=== PATIENT | female | born 1960 | race Caucasian/White ===

== ENCOUNTER → 2023-11-01 06:52 | Outpatient (REF) | payer OTHER, SELFPAY | LOC: MRI 3T 06:52 | PROVIDERS: ATTENDING PHYSICIAN Anesthesiology; FAMILY PHYSICIAN Physician Assistant Medical | DX: M54.14 Radiculopathy, thoracic region (principal) | CPT/HCPCS: 72146 ==

== ENCOUNTER → 2024-04-28 07:38 | Outpatient (REF) | payer OTHER, SELFPAY | LOC: RAD 07:38 | PROVIDERS: ATTENDING PHYSICIAN Physician Assistant; FAMILY PHYSICIAN Physician Assistant Medical | DX: M25.561 Pain in right knee (principal) | CPT/HCPCS: 73564 ==

== ENCOUNTER → 2024-09-10 07:14 | Outpatient (REF) | payer OTHER, SELFPAY | LOC: PAVMRI 07:14 | PROVIDERS: ATTENDING PHYSICIAN Specialist; FAMILY PHYSICIAN Physician Assistant Medical | DX: K76.89 Other specified diseases of liver (principal) | CPT/HCPCS: 74183; A9575 ==

== ENCOUNTER → 2024-12-29 13:00 | Outpatient (REF) | payer OTHER, SELFPAY | LOC: RAD 13:00 | PROVIDERS: ATTENDING PHYSICIAN Physician Assistant Medical | DX: M25.511 Pain in right shoulder (principal) | CPT/HCPCS: 73030 ==

== ENCOUNTER → 2025-01-10 06:44 | Outpatient (REF) | payer OTHER, SELFPAY | LOC: MRI 3T 06:44 | PROVIDERS: ATTENDING PHYSICIAN Physician Assistant Medical | DX: M25.511 Pain in right shoulder (principal) | CPT/HCPCS: 73221 ==

== ENCOUNTER 2025-01-12 14:02 | Observation (INO) | payer OTHER, SELFPAY ==
[2025-01-12] VITALS (13 sets, daily range): BP systolic 87–130; BP diastolic 44–86; BMI 21.8
--- NOTE | 2025-01-12 09:12 | ED.GENMED ---
History of Present Illness
<Sachin Nunes Jr., PA-C - Last Filed: 01/12/25 12:32>
General
Chief Complaint: Eye Problems
Source: patient and family
Exam Limitations: none
Time Seen by Provider: 01/12/25 07:23
Nursing documentation reviewed up to this point in time: agreed with
History of Present Illness
History of Present Illness:
65-year-old female with past medical history of anemia previous GI bleeds presenting to the emergency department today with concerns of complete vision loss of the right eye few hours prior to arrival upon awakening when using her phone. Lasted for
a few minutes went to the bathroom and noticed that the vision was coming back in a curtain like fashion from top to bottom. Denies any headache or discomfort. Denies any numbness weakness or any additional symptoms otherwise.
Past History
<Sachin Nunes Jr., PA-C - Last Filed: 01/12/25 12:32>
Past History
ED Past Medical History: Other and Other (Sorensen's esophagus, hiatal hernia, deficiency anemia, gastric ulcer, and ectopic )
ED Past Surgical History: Appendectomy and Gynecological
Social History
Tobacco: Non-smoker
Personal:
Living: with family
Family History
Family History: Negative Diabetes
Review of Systems
<Sachin Nunes Jr., PA-C - Last Filed: 01/12/25 12:32>
Review of Systems
Allergies reviewed?: Yes
All Other Systems: ROS reviewed and negative except as documented in HPI and ROS
Phy Exam
<Sachin Nunes Jr., PA-C - Last Filed: 01/12/25 12:32>
Physical Exam
Physical Exam:
GENERAL: Alert , in no apparent distress
EYE: pupils equal and reactive
NECK: Supple, no significant adenopathy.
ENT: o/p clr, mmm.
CARDIAC: Regular rate and rhythm .
LUNGS: Clear breath sounds bilaterally, no acute respiratory distress, no wheezes/rales/rhonchi
ABDOMEN: Soft, without focal tenderness, no r/g, no cvat
NEUROLOGICAL: Alert and oriented, no focal neuro deficits 5 out of 5 upper and lower extremity strength normal sensation with palpating bilaterally normal finger-nose [id number] no pronator drift.
SKIN: Warm and dry, skin intact.
MUSCULOSKELETAL: No edema, well perfused.
PSYCH: Normal and appropriate interaction.
Course
<Sachin Nunes Jr., SAJI-Cecilio - Last Filed: 01/12/25 12:32>
Orders/Labs/Results
Orders:
Orders
01/12/25 08:31
EKG [Electrocardiogram (*1)] Urgent
Reason for Study: TIA/Stroke
CT Head & Neck Angio W/wo IV Urgent
Comment:
Reason For Exam: right vision loss
01/12/25 08:32
EKG- Treatment ONCE
01/12/25 09:04
CRP [C-Reactive Protein] Urgent
Complete Blood Count/With Diff Urgent
Comprehensive Metabolic Panel Urgent
Erythrocyte Sed Rate Urgent
Abnormal Lab Results
01/12/25
09:04
MPV 11.8 H fL
(7.4-10.4)
BUN 20 H mg/dl
(7-17)
01/12/25 09:04
01/12/25 09:04
Vital Signs
Initial and Last Documented VS:
Initial Vital Signs
Temp Pulse Resp BP Pulse Ox
36.7 C 65 15 122/71 95
01/12/25 06:12 01/12/25 06:12 01/12/25 06:12 01/12/25 06:12 01/12/25 06:12
Last Documented Vital Signs
Temp Pulse Resp BP Pulse Ox
36.7 C 62 15 105/75 93
01/12/25 06:12 01/12/25 10:30 01/12/25 06:12 01/12/25 10:00 01/12/25 11:45
<Tristan Cedeño MD - Last Filed: 01/12/25 12:45>
Orders/Labs/Results
Orders:
Orders
01/12/25 08:31
EKG [Electrocardiogram (*1)] Urgent
Reason for Study: TIA/Stroke
CT Head & Neck Angio W/wo IV Urgent
Comment:
Reason For Exam: right vision loss
01/12/25 08:32
EKG- Treatment ONCE
01/12/25 09:04
CRP [C-Reactive Protein] Urgent
Complete Blood Count/With Diff Urgent
Comprehensive Metabolic Panel Urgent
Erythrocyte Sed Rate Urgent
Abnormal Lab Results
01/12/25
09:04
MPV 11.8 H fL
(7.4-10.4)
BUN 20 H mg/dl
(7-17)
01/12/25 09:04
01/12/25 09:04
Vital Signs
Initial and Last Documented VS:
Initial Vital Signs
Temp Pulse Resp BP Pulse Ox
36.7 C 65 15 122/71 95
01/12/25 06:12 01/12/25 06:12 01/12/25 06:12 01/12/25 06:12 01/12/25 06:12
Last Documented Vital Signs
Temp Pulse Resp BP Pulse Ox
36.7 C 62 15 105/75 93
01/12/25 06:12 01/12/25 10:30 01/12/25 06:12 01/12/25 10:00 01/12/25 11:45
<Sachin Nunes Jr., PA-C - Last Filed: 01/12/25 12:32>
MDM/Problems Addressed
MDM/Problems Addressed:
65-year-old female presenting to the emergency department today with concerns of complete vision loss to the right eye seemingly upon awakening and using her phone this morning. This was a few hours prior to arrival. Symptoms are fully resolved.
Symptoms lasted for a few minutes. Neurologic examination normal here patient is 20/60 to the right and 20/50 to the left which she claims is about her baseline. She typically does use glasses. The case was discussed with neurology recommending
labs and CT angiogram. CT angiogram without emergent findings. Patient in no distress no recurrence of symptoms case was again discussed with neurology recommending admission for further assessment.
<Sachin Nunes Jr., PA-C - Last Filed: 01/12/25 12:32>
*Pulse Oximetry
SaO2: 95
Oxygen Mode of Delivery: Room air
Patient hypoxic: no (93)
*Critical Care Note
Total Time (30-74mins, 75-104mins- exclusive of procedures): Not Applicable
ED Attending Note
<Sachin Nunes Jr., PA-C - Last Filed: 01/12/25 12:32>
-
Portions of this chart may have been created with voice recognition software.� Occasional wrong word or��sound alike� substitutions may have occurred due to the inherent limitations of voice recognition software.
<Tristan Cedeño MD - Last Filed: 01/12/25 12:45>
ED Attending Note
Patient seen and examined by attending physician: Yes
ED Attending Note:
I have seen and evaluated the patient with a [id number] encounter. I have spoken to the advance practicer provider and involved in the medical history, the physical exam, medical decision making.
Evaluation and management service: agree unless noted differently below.
Results interpretation: agree unless noted differently below.
Focused HPI: 65-year-old female with history as noted presents for evaluation after transient vision loss. Patient reports that she woke up around 5 AM and shortly thereafter had transient complete loss of vision in the right eye that lasted for
about 6 or 7 minutes. It then slowly resolved and she feels now that her vision is back to normal. She denies any eye pain. She denies any other symptoms including headache, focal weakness or numbness or other acute complaints.
Physical exam: Awake and alert not in distress. Vital signs are normal. Pupils are equal round and reactive to light bilaterally. Conjunctiva are normal bilaterally. Extraocular movements are intact. Rest of cranial nerves are intact 2 through
12. Speech fluid. She has frozen right shoulder but distal strength intact and symmetric in the upper extremities and strength is intact and symmetric proximally and distally in the lower extremities.
Medical Decision Makin-year-old female presents after transient monocular vision loss that has since resolved. Labs sent off and unremarkable. CTA head and neck negative. Discussed with neurology, concern for amaurosis fugax will admit for
continued evaluation and monitoring. PA discussed with hospitalist.
Discharge Plan
Departure
Patient Disposition: Admit
Date of Disposition: 01/12/25
Time of Disposition: 12:31
Admit to: Telemetry
Admit to doctor: Eduardo
Presentation/result/management discussed w/ accepting MD/DO: Hospitalist
Patient with high blood pressure during this ER visit?: No
Condition: Good
Covid-19: Not Applicable
Discharge Problem:
Amaurosis fugax
Prescriptions:
No Action
clonazepam [Klonopin] 1 MG tablet
1 mg PO HS
ranitidine HCl [Zantac] 300 MG tablet
300 mg PO HS
dexlansoprazole [Dexilant] 60 MG capsule,biphase delayed releas
60 mg PO DAILY
Muscle Relaxer
PO PRN PRN (Reason: prn)
Patient Comments:
pt. does not know the name or dose of this medication.
folic acid 0.4 MG tablet
0.4 mg PO DAILY
cholecalciferol (vitamin D3) [Vitamin D3] 1,000 UNIT tablet
500 unit PO DAILY
vitamin A40-qrnpy acid 1 EACH tablet
1 ea PO DAILY
prednisone 20 MG tablet
40 mg PO PRN (Reason: day of venofer infusions)
Patient Comments:
pt reports she had iron infusion approximately a month ago
Tramadol Hcl
PO HS
Patient Comments:
pt does not know dose
oxycodone-acetaminophen 5 MG/325 MG tablet
1 tab PO Q4HPRN PRN (Reason: pain) Qty: 15 0RF
Referrals:
Alba Srivastava PA [Family Provider, Family Practice]
Interventions
Interventions:
*Risk Screen - Suicide Last Done: 01/12/25 06:12
*General Assessment Last Done: 01/12/25 09:16
*Neglect/Abuse Screening Last Done: 01/12/25 09:16
*ED- Fall Risk Assessment Last Done: 01/12/25 09:16
*ED COVID-19 Vaccine History Last Done: 01/12/25 09:16
Discharge Date and Time
Print Language: VIET[place]ESE
[2025-01-12 09:16] LABS: Hematocrit 43.4 % (37.0-47.0); Hemoglobin 14.6 g/dL (12.0-16.0); Mean Corp Hgb Conc. 33.6 g/dL (33.0-37.0); Mean Corpuscular Volume 88.6 fL (81.0-99.0); Nucleated Red Blood Cells % 0 %; Platelet Count 175 10^3/uL (130-400); Red Cell Dist. Width 12.8 % (11.5-14.5)
[2025-01-12 09:32] LABS: ALT (SGPT) 23 U/L (0-35); AST (SGOT) 25 U/L (14-36); Albumin 4.4 g/dl (3.5-5.0); Alkaline Phosphatase 91 U/L (38-126); Blood Urea Nitrogen 20 mg/dl (7-17); Calcium 9.5 mg/dl (8.4-10.2); Carbon Dioxide 28 mmol/L (22-30); Chloride 107 mmol/L (98-107); Glucose 97 mg/dl (70-99); Potassium 4.4 mmol/L (3.5-5.1); Sodium 140 mmol/L (135-145); Total Protein 6.9 g/dl (6.3-8.2); eGFR > 60.00
[2025-01-12 09:36] LABS: C-Reactive Protein < 5.00 mg/L (0.0-10.00)
--- NOTE | 2025-01-12 10:01 | CON.NEURO ---
Consultation
Order
Date of Consultation: 01/12/25
Requesting Provider: Domingo Baez DO
Reason for Consult: Visual changes
Neurology Consultation Note.
HPI: This is a 65-year-old right-handed woman who presented to [facility] on 01/08/2025 with transient visual symptoms.
Ms. Andujar reports waking up around 4 AM feeling 'weird' and noticing visual disturbances. At approximately 5 AM, she closed her left eye and experienced complete darkness in her right eye, lasting about 2-3 minutes. Vision gradually returned over the
course of about 2 minutes, described as 'like a curtain going down,' accompanied by white flashes with each blink. No reports of head trauma, eye pain, headache, motor loss, sensory or balance changes.
ER VS: 122/71, 65, afebrile
EKG: Sinus bradycardia at 59, QTcB Int : 401 ms.
PDMP: Clonazepam 1 Mg�30 tablets filled in on 01/07/2025, Oxycodone-Acetaminophen 5-325 60 tablets filled in on 12/11/2024
Labs: Normal glucose, sodium, creatinine, platelets, WBCs, CRP.
PMH: Scheuermann's disease, GERD, Scoliosis, CATHIE, L hearing impairment, vitamin D deficiency, hiatal hernia
PSH: Appendectomy, lumpectomy, cystectomies
SH: , former instructor correspondence school, non-smoker, no history excessive alcohol use
FH: Mother�pancreatic cancer
All: Aspirin (GI intolerance
ROS:HEENT: Positive for transient visual loss in right eye, negative for eye pain.
Cardiovascular: Negative for chest pain, palpitations.
Respiratory: Negative for difficulty breathing.
Gastrointestinal: Positive for reflux.
Musculoskeletal: Positive for L right shoulder and knee pain
Neurological: Negative for numbness, changes in speech or thinking.
Psychiatric: Positive for anxiety.
General: Well developed. In no acute distress.
Cardio: Regular rate and rhythm without murmur. Extremities are without cyanosis or edema.
Neuro:
Mental Status: Alert, oriented to person, place, and date. Normal attention and recall. Good fund of knowledge. Follows complex requests across the midline. Comprehension, naming, and repetition intact. Immediate and delayed recall 3/3.
Cranial Nerves: Pupils are equally round and reactive to light. EOMs full. Visual [place] full to confrontation. No ptosis. No nystagmus. V1-V3 intact to light touch and pinprick bilaterally, symmetric. Face symmetric. Normal hearing AU. The
palate elevated well. SCMs and traps 5/5. Tongue midline. No dysarthria.
Motor: Normal bulk and tone. No pronator or arm drift. Strength 5/5 throughout except for pain related right shoulder adduction and abduction and right triceps 4 out of 5. No clonus.
Reflexes: 1+ throughout the upper extremities and knees. . Plantar responses flexor bilaterally.
Sensory: Reduced vibration at the toes
Coordination: No dysmetria or tremor.
Gait: deferred
Assessment and Plan:
I. Amaurosis fugax
II. CATHIE
III. Chronic left hearing impairment
-Continue Telemetry monitoring
-Plavix 75 mg QD for 21 days. Ms. Andujar is intolerant to aspirin
-Lipitor 40 mg QHS.
-Please check HbA1C, LDL.
- Please follow-up CTA head and neck results
-Brain MRI without cathie
-Ophthalmology consult
-DVT prophylaxis.
I personally reviewed all radiology and labs along with past medical records pertinent to current medical problems. Total time spent in patient care is 60 minutes.
Thank you for allowing us to participate in the care of this patient. We will continue to follow. Please do not hesitate to contact us with any questions or concerns.
Subjective/Objective
Subjective Data
Date of Service: January 12, 2025
Objective Data
Vital Signs
Temp Pulse Resp BP Pulse Ox
36.7 C 65 15 122/71 95
01/12/25 06:12 01/12/25 06:12 01/12/25 06:12 01/12/25 06:12 01/12/25 09:14
Lab Results
01/12/25 09:04
01/12/25 09:04
Sodium 140 mmol/L (135-145) 01/12/25 09:04
Potassium 4.4 mmol/L (3.5-5.1) 01/12/25 09:04
BUN 20 mg/dl (7-17) H 01/12/25 09:04
Glucose 97 mg/dl (70-99) 01/12/25 09:04
Calcium 9.5 mg/dl (8.4-10.2) 01/12/25 09:04
Patient Allergies
aspirin Allergy (Verified 01/12/25 06:12)
GI INTOLERANCE
Salicylates * Allergy (Verified 01/12/25 06:12)
GI INTOLERANCE
Medications
-
Home Medications
�Medication �Instructions �Recorded
clonazepam 1 mg tablet (Klonopin) 1 mg PO HS 02/04/11
dexlansoprazole 60 mg 60 mg PO DAILY 05/24/11
capsule,biphase delayed release
(Dexilant)
ranitidine HCl 300 mg tablet 300 mg PO HS 05/24/11
(Zantac)
Muscle Relaxer PO PRN PRN prn 06/05/11
cholecalciferol (vitamin D3) 25 500 unit PO DAILY 07/19/11
mcg (1,000 unit) tablet (Vitamin
D3)
folic acid 400 mcg tablet 0.4 mg PO DAILY 07/19/11
prednisone 20 mg tablet 40 mg PO PRN day of venofer 07/19/11
infusions
vitamin B12 500 mcg-folic acid 400 1 ea PO DAILY 07/19/11
mcg tablet
Tramadol Hcl PO HS 09/28/11
oxycodone-acetaminophen 5 mg-325 1 tab PO Q4HPRN PRN pain #15 tabs 03/02/15
mg tablet
Vital Signs and Labs
-
Vital Signs and Labs:
Vital Signs
Temp Pulse Resp BP Pulse Ox
36.7 C 59 15 105/75 96
01/12/25 06:12 01/12/25 10:00 01/12/25 06:12 01/12/25 10:00 01/12/25 10:00
Lab Results
01/12/25 09:04
01/12/25 09:04
Sodium 140 mmol/L (135-145) 01/12/25 09:04
Potassium 4.4 mmol/L (3.5-5.1) 01/12/25 09:04
BUN 20 mg/dl (7-17) H 01/12/25 09:04
Glucose 97 mg/dl (70-99) 01/12/25 09:04
Calcium 9.5 mg/dl (8.4-10.2) 01/12/25 09:04
Home Medications
-
Home Medications
clonazepam 1 mg tablet (Klonopin) 1 mg PO HS 02/04/11
dexlansoprazole 60 mg capsule,biphase delayed release (Dexilant) 60 mg PO DAILY 05/24/11
ranitidine HCl 300 mg tablet (Zantac) 300 mg PO HS 05/24/11
Muscle Relaxer PO PRN PRN prn 06/05/11
cholecalciferol (vitamin D3) 25 mcg (1,000 unit) tablet (Vitamin D3) 500 unit PO DAILY 07/19/11
folic acid 400 mcg tablet 0.4 mg PO DAILY 07/19/11
prednisone 20 mg tablet 40 mg PO PRN day of venofer infusions 07/19/11
vitamin B12 500 mcg-folic acid 400 mcg tablet 1 ea PO DAILY 07/19/11
Tramadol Hcl PO HS 09/28/11
oxycodone-acetaminophen 5 mg-325 mg tablet 1 tab PO Q4HPRN PRN pain #15 tabs 03/02/15
--- NOTE | 2025-01-12 12:59 | HPS.HSE ---
Family Physician
-
Family Physician: Alba Srivastava
Chief Complaint
-
vision loss
History of Present Illness
65-year-old female past medical history of Sorensen's esophagus, hiatal hernia, prior peptic ulcer, migraines, anemia, prior GI bleeding presenting, anxiety history of precancerous lesion of breath status post lumpectomy complicated by MRSA
infection, right frozen shoulder, presenting with complete vision loss of the right eye for few hours prior to arrival when using her phone. Lasted for few minutes and she went to the bathroom noticed it the vision was coming back in a curtain like
fashion from top to bottom. Denies headache. Denies numbness or tingling or weakness any additional symptoms.
No prior history of stroke
No family history of strokes.
Denies smoking or alcohol use.
Medical History
Past Medical History
Past Medical History: Reports Other ( Sorensen's esophagus, hiatal hernia, prior peptic ulcer, migraines, anemia, prior GI bleeding presenting, anxiety history of precancerous lesion of breath status post lumpectomy complicated by MRSA infection,
right frozen shoulder)
Past Surgical History: Reports Other (Appendectomy, lumpectomy, cystectomies)
Social History
Tobacco: Non-smoker
Alcohol: None
Drug: None
Family History
Family History: Not pertinent
Allergies / Home Medications
Allergies reflects when Allergies were last updated in [facility].
Home Medications with original date entered in [facility]
Allergy/Medication List:
Allergies
Allergy/AdvReac Type Severity Reaction Status Date / Time
aspirin Allergy GI Verified 01/12/25 06:12
INTOLERANCE
Salicylates * Allergy GI Verified 01/12/25 06:12
INTOLERANCE
Home Medications
clonazepam 1 mg tablet (Klonopin) 1 mg PO HS 02/04/11
cholecalciferol (vitamin D3) 25 mcg (1,000 unit) tablet (Vitamin D3) 500 unit PO DAILY 07/19/11
vitamin B12 500 mcg-folic acid 400 mcg tablet 1 ea PO DAILY 07/19/11
famotidine 40 mg tablet 40 mg PO HS 01/12/25
glucosamine sulf dipot chlr,msm,chond 550 mg-C 30 mg-elvia 1 mg capsule (Glucosamine Chondroitin) 1 cap PO BID 01/12/25
magnesium oxide 500 mg PO DAILY 01/12/25
omega-3 fatty acids-fish oil 684 mg-1,200 mg capsule,delayed release 1 cap PO DAILY 01/12/25
oxycodone-acetaminophen 5 mg-325 mg tablet 1 tab PO BIDPRN PRN back pain 01/12/25
Review of Systems
-
Constitutional: Reports No Symptoms
EENT: Reports See HPI
Respiratory: Reports No Symptoms
Cardiac: Reports No Symptoms
Abdomen/GI: Reports No Symptoms
: Reports No Symptoms
Musculoskeletal: Reports No Symptoms
Skin: Reports No Symptoms
Neurological: Reports No Symptoms
Endocrine: Reports No Symptoms
Hematologic/Lymphatic: Reports No Symptoms
Psych: Reports No Symptoms
Physical Exam
Vital Signs
Vital Signs
Temp Pulse Resp BP Pulse Ox
98.0 F 62 15 105/75 93
01/12/25 06:12 01/12/25 10:30 01/12/25 06:12 01/12/25 10:00 01/12/25 11:45
Physical Exam
General: Well Developed, Well Nourished and No Apparent Distress
HEENT: NormoCephalic, Moist mucous membranes and Atraumatic
Respiratory: Clear
Cardiac: S1/S2 and Regular Rhythm; No Murmur or Rub
GI: Soft, Non Tender, Non Distended and Normal Bowel Sounds; No Organomegaly
Rectal: Deferred by Provider
Musculoskeletal: No Clubbing, No Cyanosis and No Edema
Skin: No Rash
Neuro: Nonfocal/grossly intact
Laboratory Results
-
01/12/25 09:04
01/12/25 09:04
Laboratory Results
Total Bilirubin 0.5 mg/dl (0.2-1.3) 01/12/25 09:04
AST 25 U/L (14-36) 01/12/25 09:04
ALT 23 U/L (0-35) 01/12/25 09:04
Alkaline Phosphatase 91 U/L (38-126) 01/12/25 09:04
Data Reviewed
-
Lab Data: Labs Reviewed by me
Old Records: Reviewed
Impression/Plan
-
IMPRESSION:
PLAN:
# TIA/amaurosis fugax
-CTA head and neck unremarkable
-Patient was hesitant to start aspirin due to history of Sorensen's esophagus/hiatal hernia but is willing to take aspirin with Pepcid
-Aspirin and Plavix
-Plavix for 21 days
- Start Lipitor
- Check A1c and lipid panel
- Check MRI brain
-Neurology following
- Outpatient ophthalmology consult
Sorensen's esophagus/hiatal hernia
- Continue dexlansoprazole
Prior peptic ulcer
History of migraine
Chronic anemia
History of prior GI bleed
Right frozen shoulder
Anxiety/depression
- Continue clonazepam
Left hearing impairment
Hx of ectopic
Full code
DVT prophylaxis-SCDs
Regular diet
[2025-01-12] MEDS: PEPCID 20 MG PO (13:17)
[2025-01-12] MEDS: ASPIRIN 325 MG PO (13:17)
--- NOTE | 2025-01-12 16:36 | EDCM ---
CM reviewed chart and met with pt bedside in ED. Lives with her Andrés in 2 story home, [address], has first floor half bath, full flight to second floor bedroom and full bath.
Independent in ADLs, personal care and ambulation at baseline. No assistive devices. Walks about 10 miles per day.
SULTANA reviewed and signed
No hx VN or SNF
PCP: Alba Srivastava
Pharmacy: [facility]
Anticipate discharge home, CM will continue to follow for all discharge planning needs.
[2025-01-12] MEDS: KLONOPIN 1 MG PO (20:15)
[2025-01-12] MEDS: PEPCID 40 MG PO (20:16)
[2025-01-12 20:30] LABS: HDL Cholesterol 91 mg/dl; LDL Cholesterol, Calculated 97 mg/dl; Very Low Density Lipoprotein 21 mg/dl (0-30)
[2025-01-13 03:00] VITALS: BP 97/53
[2025-01-13 08:12] VITALS: BP 110/65
[2025-01-13 08:22] LABS: Hematocrit 44.1 % (37.0-47.0); Hemoglobin 15.3 g/dL (12.0-16.0); Mean Corp Hgb Conc. 34.7 g/dL (33.0-37.0); Mean Corpuscular Volume 90.0 fL (81.0-99.0); Nucleated Red Blood Cells % 0 %; Platelet Count 164 10^3/uL (130-400); Red Cell Dist. Width 12.6 % (11.5-14.5)
[2025-01-13] MEDS: MAGNESIUM OXIDE 400 MG PO (08:24)
[2025-01-13] MEDS: PLAVIX 75 MG PO (08:24)
[2025-01-13] MEDS: ASPIR LOW (ENTERIC COATED) 81 MG PO (08:24)
[2025-01-13] MEDS: VITAMIN D3 (cholecalciferol) 12.5 MCG PO (08:24)
[2025-01-13] MEDS: PEPCID 40 MG PO (08:43)
[2025-01-13 09:00] LABS: ALT (SGPT) 19 U/L (0-35); AST (SGOT) 20 U/L (14-36); Albumin 4.1 g/dl (3.5-5.0); Alkaline Phosphatase 98 U/L (38-126); Blood Urea Nitrogen 17 mg/dl (7-17); Calcium 9.7 mg/dl (8.4-10.2); Carbon Dioxide 27 mmol/L (22-30); Chloride 110 mmol/L (98-107); Estimated Creatinine Clearance 70 ml/min; Glucose 95 mg/dl (70-99); Potassium 4.1 mmol/L (3.5-5.1); Sodium 140 mmol/L (135-145); Total Protein 6.5 g/dl (6.3-8.2); eGFR > 60.00
--- NOTE | 2025-01-13 09:17 | W.PN.HOSP.TC ---
Addendum entered and electronically signed by Rojas Cole MD 01/13/25 22:01:
Attending Addendum-
I saw and evaluated the patient. I reviewed the resident�s note and agree with findings and plan as documented in the resident�s note. Sub: no further episodes of blindness. Denies W/N/T or other neuro sxs denies WILCOX. adamant about going home today.
Full 12 point ROS reviewed and negative except as documented Exam: Vitals reviewed in chart GEN-anxious appearing heart RRR lungs clear abd oft LE no edema Neuro PERRLA MS 08/23 no cerebellar sxs
Plan:
# TIA/amaurosis fugax
-CTA head and neck unremarkable
-Aspirin and Plavix
-Plavix for 21 days then DC
-cont Lipitor
- MRI brain-no CVA no acute changes
- Neurology following- stable for DC home
- Outpatient ophthalmology consult
# Sorensen's esophagus/hiatal hernia
- Continue dexlansoprazole
Prior peptic ulcer
History of migraine
Chronic anemia
History of prior GI bleed
Right frozen shoulder
#Anxiety/depression
- Continue clonazepam
Left hearing impairment
Hx of ectopic
Full code
DVT prophylaxis-SCDs
Regular diet
Time spent coordinating care, DC planning, review of DC plan of care with resident, transition of care, review of records, med rec/scripts sent electronically, consults, notes, d/w consultants, nursing, family, neuro and CM� 32 mins >50% of this
time was devoted to counseling and coordination of care
Original Note:
Today's Communication/Plan
-
Patient remains asymptomatic since arrival
DC today with outpatient follow-up
Assessment / Plan
Assessment / Plan
Erma Andujar 65-year-old female past medical history of Sorensen's esophagus, hiatal hernia, prior peptic ulcer, migraines, anemia, prior GI bleeding presenting, anxiety history of precancerous lesion of breath status post lumpectomy complicated by MRSA
infection, right frozen shoulder, who presented to the ED with complete vision loss of the right eye for a few minutes. Neuro was consulted and she was admitted for further workup and management. She has been asymptomatic since being in the
hospital.
Head/neck CTA 01/12:
No acute intracranial abnormality.
No CTA evidence for high-grade stenosis or occlusion of the [place] or the arterial vasculature of the neck.
2 cm nodule in the left lobe of the thyroid gland. Recommend a follow-up thyroid ultrasound.
#Amaurosis Fugax
Initial concern for stroke, but head and neck CTA negative for acute intracranial abnormality or high-grade stenosis/occlusion of [place]. Patient has been asymptomatic since arrival. No focal defects on exam.
- Neurology following, appreciate recs:
--Plavix 75mg for 21 days
--Aspirin 81mg indefinitely with Pepcid ISO history of Sorensen's esophagus/hiatal hernia
--Lipitor 40mg daily
--MRI brain
---If pt not able to stay, discussed with neuro and OK for outpatient Brain MRI
--Outpatient ophthalmology consult and follow-up with neurology
--Lipid Panel with total cholesterol 207H
#Thyroid nodule
Incidental finding of 2 cm nodule in the left lobe of the thyroid gland
- Follow-up thyroid ultrasound outpatient
#History of Sorensen's esophagus/hiatal hernia
- Continue dexlansoprazole
#Anxiety
- Continue clonazepam 1 mg p.o. at bedtime
#History of migraine: CTM
#Chronic anemia: CTM
CODE STATUS: Full code
DVT prophylaxis: SCDs
Diet: Regular
Anticipated Discharge: Today (Pending brain MRI)
Subjective/Interval History
-
Date of Service: January 13, 2025
-This morning, she is frustrated that her brain MRI is still not completed. Her daughter is visiting from [place] and leaving later this morning. Erma would really like to leave the hospital to see her. I reassured her that her MRI would get
done today (per MRI department, plan is for this afternoon) and she is willing to wait a bit.
-She has not had any symptoms or complaints since being here.
Objective Data
-
Labs:
Laboratory Results
01/13/25
07:36
WBC 5.9
Hgb 15.3
Hct 44.1
Plt Count 164
Sodium 140
Potassium 4.1
Chloride 110 H
Carbon Dioxide 27
BUN 17
Creatinine 0.7
Glucose 95
Calcium 9.7
Total Bilirubin 0.8
AST 20
ALT 19
Alkaline Phosphatase 98
Vital Signs:
Vital Signs
Temp Pulse Resp BP Pulse Ox
98.4 F 62 16 110/65 96
01/13/25 08:12 01/13/25 08:12 01/13/25 08:12 01/13/25 08:12 01/13/25 08:12
Physical Exam
-
General: Well Developed, Well Nourished, No Apparent Distress, Comfortable and Other (Laying in bed)
HEENT: Normocephalic, Atraumatic and Moist Mucous Membranes
Respiratory: Clear to Auscultation and Non Labored Respirations
Cardiac: Regular Rhythm and S1/S2
GI: Soft, Nontender and Nondistended
Musculoskeletal: No Clubbing, No Cyanosis and No Edema
Skin: Warm and Dry
Neuro: AO x 3, No Motor Deficits and Nonfocal/Grossly Intact
--- NOTE | 2025-01-13 09:26 | W.PN.NEURO.1 ---
Today's Communication / Plan
-
Use combined aspirin and clopidogrel for 21 days, then aspirin alone
Agree with initiation of atorvastatin 40 mg due to elevated LDL
Can check MRI of brain as outpatient
Eventual ophthalmology consult which may be done as outpatient
Neuro Assessment/Plan
Assessment
I. Amaurosis fugax, differential diagnosis migraine with aura
II. ANTOINETTE
III. Chronic left hearing impairment
Plan
Use combined aspirin and clopidogrel for 21 days, then aspirin alone
Agree with initiation of atorvastatin 40 mg due to elevated LDL
Can check MRI of brain as outpatient
Eventual ophthalmology consult which may be done as outpatient
Will follow as needed
Subjective/Objective
Subjective Data
Date of Service: January 13, 2025
Objective Data
Vital Signs
Temp Pulse Resp BP Pulse Ox
36.9 C 62 16 110/65 96
01/13/25 08:12 01/13/25 08:12 01/13/25 08:12 01/13/25 08:12 01/13/25 08:12
Lab Results
01/13/25 07:36
01/13/25 07:36
Sodium 140 mmol/L (135-145) 01/13/25 07:36
Potassium 4.1 mmol/L (3.5-5.1) 01/13/25 07:36
BUN 17 mg/dl (7-17) 01/13/25 07:36
Glucose 95 mg/dl (70-99) 01/13/25 07:36
Calcium 9.7 mg/dl (8.4-10.2) 01/13/25 07:36
LDL Cholesterol, Calc 97 mg/dl 01/12/25 19:50
Patient Allergies
aspirin Allergy (Verified 01/12/25 18:29)
GI INTOLERANCE
Salicylates * Allergy (Verified 01/12/25 18:29)
GI INTOLERANCE
Data Reviewed
-
CT-A: Report Reviewed
CT Head: Report Reviewed
Labs: Report Reviewed
Lipid Profile: Report Reviewed
Reviewed with: Physician and Nurse Practioner
Old Records: Summarized
Past History
Past History
ED Past Medical History: Other (Migraine headache) and Other (Sorensen's esophagus, hiatal hernia, deficiency anemia, gastric ulcer, and ectopic )
ED Past Surgical History: Appendectomy and Gynecological
Social History
Tobacco: Non-smoker
Personal:
Living: with family
Family History
Family History: Negative Diabetes
Medications
-
Medications:
Generic Name Dose Route Start Last Admin
Trade Name Freq PRN Reason Stop Dose Admin
Aspirin 81 mg 01/13/25 08:00 01/13/25 08:24
Aspirin 81 Mg (Enteric Coated) Tablet PO 02/10/25 07:59 81 mg
DAILY YOLANDA Administration
Atorvastatin Calcium 40 mg 01/13/25 11:00
Atorvastatin (Lipitor) 40 Mg Tablet PO 02/10/25 10:59
QPM YOLANDA
Cholecalciferol 12.5 mcg 01/13/25 08:00 01/13/25 08:24
Cholecalciferol (Vitamin D3) 25 Mcg Tablet (1,000 Units) PO 02/10/25 07:59 12.5 mcg
DAILY YOLANDA Administration
Clonazepam 1 mg 01/12/25 22:00 01/12/25 20:15
Clonazepam 1 Mg Tablet PO 02/09/25 21:59 1 mg
HS YOLANDA Administration
Clopidogrel Bisulfate 75 mg 01/13/25 08:00 01/13/25 08:24
Clopidogrel 75 Mg Tablet PO 02/10/25 07:59 75 mg
DAILY YOLANDA Administration
Famotidine 40 mg 01/13/25 09:00 01/13/25 08:43
Famotidine 20 Mg Tablet PO 02/10/25 08:59 40 mg
DAILY YOLANDA Administration
Magnesium Oxide 400 mg 01/13/25 08:00 01/13/25 08:24
Magnesium Oxide 400 Mg Tablet PO 02/10/25 07:59 400 mg
DAILY YOLANDA Administration
Oxycodone/Acetaminophen 1 tablet 01/12/25 18:07
Oxycodone 5 Mg/Apap 325 Mg (Percocet) PO 01/26/25 18:06
BIDPRN PRN
back pain
Sodium Chloride 0 flush 01/12/25 19:00
Sodium Chloride 0.9% (Flush) Syringe IV 02/09/25 18:59
PER PROTOCOL YOLANDA
--- NOTE | 2025-01-13 10:37 | CM ---
CM reviewed chart, reviewed with Nurse.
Patient for MRI today.
Patient eager to d/c.
CM will continue to follow for all d/c planning needs.
Plan; home no needs anticipated.
[2025-01-13 11:16] VITALS: BP 113/76
[2025-01-13 11:28] LABS: Glycohemoglobin (HgbA1c) 5.5 % (4.0-5.6)
[2025-01-13] MEDS: LIPITOR 40 MG PO (11:38)
--- NOTE | 2025-01-13 12:05 | W.DCSUMMARY ---
Addendum entered and electronically signed by Rojas Cole MD 01/13/25 22:01:
Read, reviewed, and agree. See same day progress note for additional details.
Jaydno Cole MD
Original Note:
Documented by User: Vanessa Dorado MD, Resident 01/13/25 12:12
Discharge Summary
Discharge Data
Date of Admission: 01/12/25
Date of Discharge: 01/13/25
-
Pending Results: Yes
Additional Pending Results:
Brain MRI
Hospital Course
Discharging Physician : Vanessa Dorado
Disposition : Home
Principal Discharge diagnosis : Amaurosis Fugax
Hospital Course : Erma Andujar 65-year-old female past medical history of Sorensen's esophagus, hiatal hernia, prior peptic ulcer, migraines, anemia, anxiety, history of precancerous lesion of breast s/p lumpectomy complicated by MRSA infection, right
frozen shoulder, who presented to the ED on 01/12/25 with complete vision loss of the right eye for a few minutes that occurred 2 hours prior to arrival. Neuro was consulted and found no focal deficits on exam. Head CTA/Neck (as below) was
unremarkable for acute abnormality or stenosis. There was an incidental finding of a 2cm nodule in the left thyroid gland requiring outpatient evaluation via thyroid US. Erma was admitted for further workup and management to the hospitalist team.
She remained asymptomatic since throughout hospital course. She was discharged on Aspirin 81 (with Pepcid 20mg BID iso Sorensen's), Plavix 75mg x 21 days, and Lipitor 40mg daily. Her brain MRI read is pending at the time of discharge. She was advised
to follow up with her PCP (get thyroid US scheduled), neurology, and ophthalmology outpatient.
Important imaging findings :
Head/neck CTA 01/12:
No acute intracranial abnormality.
No CTA evidence for high-grade stenosis or occlusion of the [place] or the arterial vasculature of the neck.
2 cm nodule in the left lobe of the thyroid gland. Recommend a follow-up thyroid ultrasound.
Discharge Plan
-
Patient Disposition: Home (Routine Discharge)
Discharge Diagnosis/Procedures: Amaurosis Fugax
Condition: Good
Diet: No restrictions
Activity: No restrictions
Driving Restrictions: As prior to admission
Bathing Restrictions: None
Others Tests: Thyroid US outpatient
Referrals:
[facility] [Other] - in one to two weeks
Referral Note: Call to schedule an appointment
Alba Srivastava PA [Family Provider, Family Practice] - in less than 1 week
Referral Note: Follow-up within a week to get brain MRI and thyroid US scheduled.
Radha Garcia MD [Active, Neurology] - in one to two weeks
Referral Note: Follow-up with neurology
Additional Discharge Medication Instructions: Use combined aspirin (with pepcid) and clopidogrel for 21 days, then aspirin (with pepcid) alone indefinitely
-- follow-up with neurology and your PCP for further management
Take atorvastatin 40 mg due to elevated LDL
Follow-up with your PCP to get the following scheduled: Thyroid US
Prescriptions:
New
aspirin 81 mg Tablet,Delayed Release (Dr/Ec)
81 mg PO DAILY 90 Days Qty: 90 0RF
atorvastatin 40 mg Tablet
40 mg PO QPM 90 Days Qty: 90 0RF
clopidogrel 75 mg Tablet
75 mg PO DAILY 21 Days Qty: 21 0RF
famotidine 20 mg Tablet
40 mg PO DAILY 90 Days Qty: 180 0RF
Continued
clonazepam [Klonopin] 1 MG tablet
1 mg PO HS
cholecalciferol (vitamin D3) [Vitamin D3] 1,000 UNIT tablet
500 unit PO DAILY
vitamin E54-hcicy acid 1 EACH tablet
1 ea PO DAILY
magnesium oxide 500 mg magnesium Tablet
500 mg PO DAILY
omega-3 fatty acids-fish oil 684-1,200 mg Capsule,Delayed Release(Dr/Ec)
1 cap PO DAILY
Glucosamine Chondroitin 550-30-1 mg Capsule
1 cap PO BID
oxycodone-acetaminophen 5 MG/325 MG tablet
1 tab PO BIDPRN PRN (Reason: back pain)
Discontinued
famotidine 40 mg tablet
40 mg PO HS
Discharge Orders:
Discharge Patient (As Directed); Ordered 01/13/25
Ordered By: Rojas Cole
Discharge Date and Time
Discharge Date/Time: 01/13/25 15:28
Print Language: RWANDAN

Documented by User: Rojas Cole MD 01/13/25 21:57
Discharge Summary
Discharge Data
Date of Admission: 01/12/25
Date of Discharge: 01/13/25
Discharge Plan
-
Patient Disposition: Home (Routine Discharge)
Discharge Diagnosis/Procedures: Amaurosis Fugax
Condition: Good
Diet: No restrictions
Activity: No restrictions
Driving Restrictions: As prior to admission
Bathing Restrictions: None
Others Tests: Thyroid US outpatient
Referrals:
[facility] [Other] - in one to two weeks
Referral Note: Call to schedule an appointment
Alba Srivastava PA [Family Provider, Family Practice] - in less than 1 week
Referral Note: Follow-up within a week to get brain MRI and thyroid US scheduled.
Radha Garcia MD [Active, Neurology] - in one to two weeks
Referral Note: Follow-up with neurology
Additional Discharge Medication Instructions: Use combined aspirin (with pepcid) and clopidogrel for 21 days, then aspirin (with pepcid) alone indefinitely
-- follow-up with neurology and your PCP for further management
Take atorvastatin 40 mg due to elevated LDL
Follow-up with your PCP to get the following scheduled: Thyroid US
Prescriptions:
New
aspirin 81 mg Tablet,Delayed Release (Dr/Ec)
81 mg PO DAILY 90 Days Qty: 90 0RF
atorvastatin 40 mg Tablet
40 mg PO QPM 90 Days Qty: 90 0RF
clopidogrel 75 mg Tablet
75 mg PO DAILY 21 Days Qty: 21 0RF
famotidine 20 mg Tablet
40 mg PO DAILY 90 Days Qty: 180 0RF
Continued
clonazepam [Klonopin] 1 MG tablet
1 mg PO HS
cholecalciferol (vitamin D3) [Vitamin D3] 1,000 UNIT tablet
500 unit PO DAILY
vitamin C66-ujscy acid 1 EACH tablet
1 ea PO DAILY
magnesium oxide 500 mg magnesium Tablet
500 mg PO DAILY
omega-3 fatty acids-fish oil 684-1,200 mg Capsule,Delayed Release(Dr/Ec)
1 cap PO DAILY
Glucosamine Chondroitin 550-30-1 mg Capsule
1 cap PO BID
oxycodone-acetaminophen 5 MG/325 MG tablet
1 tab PO BIDPRN PRN (Reason: back pain)
Discontinued
famotidine 40 mg tablet
40 mg PO HS
Discharge Orders:
Discharge Patient (As Directed); Ordered 01/13/25
Ordered By: Rojas Cole
Discharge Date and Time
Discharge Date/Time: 01/13/25 15:28
Print Language: RWANDAN
== END 2025-01-13 15:28 | disposition home or self-care (01) ==
LOC: 4 WEST ACU 14:02
PROVIDERS: Physician Assistant; ADMITTING PHYSICIAN Hospitalist; ATTENDING PHYSICIAN Family Medicine; EMERGENCY PHYSICIAN Emergency Medicine; FAMILY PHYSICIAN Physician Assistant Medical; OTHER PHYSICIAN Psychiatry & Neurology Neurology
DX: G45.3 Amaurosis fugax (principal); H57.9 Unspecified disorder of eye and adnexa; K44.9 Diaphragmatic hernia without obstruction or gangrene; R00.1 Bradycardia, unspecified; F41.1 Generalized anxiety disorder; M75.01 Adhesive capsulitis of right shoulder; M41.9 Scoliosis, unspecified; H91.92 Unspecified hearing loss, left ear; E55.9 Vitamin D deficiency, unspecified; K21.9 Gastro-esophageal reflux disease without esophagitis; F32.A Depression, unspecified; E04.1 Nontoxic single thyroid nodule; M42.00 Juvenile osteochondrosis of spine, site unspecified; K22.70 Barrett's esophagus without dysplasia; D53.9 Nutritional anemia, unspecified; I25.2 Old myocardial infarction; Z86.14 Personal history of Methicillin resistant Staphylococcus aureus infection; Z88.6 Allergy status to analgesic agent; Z79.899 Other long term (current) drug therapy; Z80.0 Family history of malignant neoplasm of digestive organs; Z87.11 Personal history of peptic ulcer disease; Z87.19 Personal history of other diseases of the digestive system; Z90.49 Acquired absence of other specified parts of digestive tract; Z87.59 Personal history of other complications of pregnancy, childbirth and the puerperium
CPT/HCPCS: 70496; 70498; 70551; 80053; 80061; 83036; 85025; 85652; 86140; 93005; 99285; G0378; Q9967

== ENCOUNTER → 2025-02-21 12:34 | Outpatient (REF) | payer OTHER, SELFPAY | LOC: RAD 12:34 | PROVIDERS: ATTENDING PHYSICIAN Physician Assistant Medical | DX: E04.1 Nontoxic single thyroid nodule (principal) | CPT/HCPCS: 76536 ==

== ENCOUNTER → 2025-02-22 15:01 | Outpatient (REF) | payer OTHER, SELFPAY | LOC: WDC 15:01 | PROVIDERS: ATTENDING PHYSICIAN Physician Assistant Medical | DX: Z12.31 Encounter for screening mammogram for malignant neoplasm of breast (principal) | CPT/HCPCS: 77063; 77067 ==